=== PATIENT | female | born 1995 | race Hispanic/Latino ===

== ENCOUNTER 2020-03-21 21:20 | Day surgery (SDC) | payer OTHER ==
[2020-03-21 21:47] VITALS: BP 136/73; TEMP 98; BMI 36.6
[2020-03-21] MEDS ORDERED: hydrALAZINE 20 MG/ML VIAL SLOW IVP PRN (22:26)
--- NOTE | 2020-03-21 22:26 | PDOC.BPN ---
- Brief Progress Note Faculty note/H&P CC: spotting Patient of Dr Rey HPI: 24 yo at 34 weeks with spotting after recent sex yesterday. No VB, no LOF. No Clots.States failed 1 hr and needs 3 hr GTT. Review of Systems: negative for LOF, clots, CTX, good FM. No DIAZ, no visual changes. Failed 1 hr and g hr pending Allergies: none Surgical HX: neg Past medical: Negative Social: negative for ETIOH, smoking, drugs OB HX: HX with first delivery; this will be scheduled CS for that reason EXAM: 136/71 then 128/68 90 afebrile (98.0) NAD Thick vag dsch no active VB VX pending per Dr Thomas CX closed Labs: Cath UA VP3 Monitors: reactive nst with no CTX pattern Assessment and plan: 1. 34 weeks postcoital spotting 2. vag DSCG 3. Check VP3 and cath UA, 4. Reactive NST
--- NOTE | 2020-03-21 22:28 | PDOC.LDHP ---
Labor and Delivery H&P Chief complaint: other (Spotting at 34 weeks) HPI: See other H&P entry in progress note Allergies/Adverse Reactions: Allergies Allergy/AdvReac Type Severity Reaction Status Date / Time No Known Allergies Allergy Verified 03/21/20 21:39
[2020-03-21 22:54] LABS: Bacteria/HPF None Seen HPF (None Seen); Bilirubin Negative (Negative); Blood, Urine 1+ (Negative); Clarity Clear (Clear); Glucose, Urine (Dipstick) Normal (Negative); Ketone, Urine Negative (Negative); Leukocyte Negative Leu/uL (Negative); Nitrite Negative (Negative); Protein, Urine (Dipstick) Negative (Neg-Trace); RBC/HPF 21-50 HPF (0-3); Squamous Epithelial 0-3 HPF (0-3); Urobilinogen Normal mg/dL (Less than 2); WBC/HPF 0-3 HPF (0-3)
[2020-03-21 22:55] LABS: Urine Culture Reflex No No
--- NOTE | 2020-03-21 23:42 | PDOC.BPN ---
- Brief Progress Note Review of VP3 showed yeast. UA did not reveal evidence of infection. Will send home with rx for clotrimazole cream. F/u with Dr. Candido rodriguez. Radha ARORA PGY2 Discussed plan with Dr. Santacruz attending.
== END 2020-03-21 23:45 | disposition home or self-care (01) ==
LOC: L&D/OP 21:20
PROVIDERS: ATTEND Family Medicine
DX: O26.853 Spotting complicating pregnancy, third trimester (principal); O98.813 Other maternal infectious and parasitic diseases complicating pregnancy, third trimester; B37.3 Candidiasis of vulva and vagina; Z3A.34 34 weeks gestation of pregnancy
CPT/HCPCS: 51701; 81001; 87480; 87510; 87660; 99285

== ENCOUNTER 2020-04-21 10:27 | Inpatient (IN) | payer OTHER ==
[2020-04-21 11:20] VITALS: BMI 37.4
[2020-04-21] MEDS ORDERED: Butorphanol Tartrate 1 MG/ML VIAL SLOW IVP PRN (11:32)
[2020-04-21] MEDS ORDERED: Bicitra 30 ML UDCUP PO PRN (11:32)
[2020-04-21] MEDS ORDERED: Promethazine HCl 25 MG/ML VIAL IM PRN ×3 (11:32→20:24)
[2020-04-21] MEDS ORDERED: Famotidine/PF 20 mg/2ml Vial SLOW IVP PRN (11:32)
[2020-04-21] MEDS ORDERED: Ondansetron PF 4 MG/2 ML Vial IVP PRN ×3 (11:32→20:24)
[2020-04-21] MEDS ORDERED: hydrALAZINE 20 MG/ML VIAL SLOW IVP PRN (11:32)
[2020-04-21] MEDS ORDERED: Lactated Ringer's 1,000 ML IV SCH ×2 (11:45)
[2020-04-21 11:57] LABS: Mean Corpuscular HGB CONC 33.7 g/dL (32.0-36.0); Mean Corpuscular Hemoglobin 31.6 pg (27.0-31.0); Mean Corpuscular Volume 93.9 fL (78.0-98.0); Mean Platelet Volume 7.5 fL (7.4-10.4); Platelet Count 273 thou/uL (130-400); RBC Distribution Width 13.3 % (11.5-14.5); White Blood Cell (WBC) Count 9.1 thou/uL (4.8-10.8)
[2020-04-21] MEDS ORDERED: CEFAZOLIN 2 GM in Premix Bag 1 BAG IVPB SCH (12:00)
[2020-04-21] MEDS ORDERED: Azithromycin 500 MG in Sodium Chloride 0.9% 250 ML 250 ML IVPB SCH (12:15)
[2020-04-21 12:34] LABS: Hep B Surf Ag Non-Reactive S/CO (NonReactive)
[2020-04-21 12:35] LABS: Syphilis Antibody Nonreactive (Nonreactive); Syphilis Antibody Index 0.06 S/CO (<1.00 Non-Reactive)
[2020-04-21 15:52] LABS: SARS-CoV-2 MS2 Positive; SARS-CoV-2 N Gene Negative; SARS-CoV-2 S Gene Negative; SARS-CoV-2 by NAA Not Detected (NotDetected); SARS-CoV-2 orf1ab Negative
[2020-04-21] MEDS ORDERED: Morphine PF 10 MG/10 ML VIAL ONE (15:56)
[2020-04-21] MEDS ORDERED: Fentanyl 100 MCG/2 ML VIAL ONE (15:56)
[2020-04-21] MEDS ORDERED: Dexamethasone 4 mg/ml Vial ONE (15:57)
[2020-04-21] MEDS ORDERED: Oxytocin 10 UNITS/ML VIAL ONE (15:57)
[2020-04-21] MEDS ORDERED: Ondansetron PF 4 MG/2 ML Vial ONE (15:57)
[2020-04-21] MEDS ORDERED: Ketorolac Tromethamine 30 MG/ML VIAL ONE (15:57)
[2020-04-21] MEDS ORDERED: ePHEDrine 50 MG/ML VIAL ONE (15:57)
[2020-04-21] MEDS ORDERED: PHENYLEPHRINE-NS 100 MCG/ML 10 ML SYRINGE ONE (15:57)
[2020-04-21] MEDS ORDERED: Penicillin G Potassium 5 MILL.UNITS VIAL ONE (16:12)
[2020-04-21] MEDS ORDERED: Penicillin G Potassium 5 MILL.UNITS in Sodium Chloride 0.9% 100 ML IVPB SCH (16:15)
[2020-04-21] MEDS ORDERED: L&D-Morphine 4 MG/ML VIAL SLOW IVP PRN (16:55)
[2020-04-21] MEDS ORDERED: Promethazine HCl 25 MG SUPP PR PRN (16:55)
[2020-04-21] MEDS ORDERED: Ondansetron HCl/PF 4 MG/2 ML Vial IVP PRN (16:55)
[2020-04-21] MEDS ORDERED: HYDROmorphone 2 MG/ML VIAL SLOW IVP PRN (16:55)
[2020-04-21] MEDS ORDERED: diphenhydrAMINE 50 MG/ML VIAL IVP PRN (16:55)
[2020-04-21] MEDS ORDERED: Naloxone HCl 0.4 mg/ml Vial IVP PRN ×2 (16:55)
[2020-04-21] MEDS ORDERED: Naloxone HCl 0.4 mg/ml Vial IV PRN (16:55)
[2020-04-21] MEDS ORDERED: Ketorolac Tromethamine 30 MG/ML VIAL IVP PRN (16:55)
[2020-04-21] MEDS ORDERED: Meperidine HCl/PF 25 MG/ML VIAL SLOW IVP PRN (16:55)
[2020-04-21] MEDS ORDERED: Ketorolac Tromethamine 30 MG/ML VIAL IVP SCH (17:00)
[2020-04-21] MEDS ORDERED: Communication Order-Pharmacy FS SCH (17:00)
[2020-04-21] MEDS ORDERED: NS w/ Oxytocin 30 units 500 ML IV SCH (20:24)
[2020-04-21] MEDS ORDERED: Bisacodyl 10 MG SUPP PR PRN (20:24)
[2020-04-21] MEDS ORDERED: diphenhydrAMINE 25 MG CAP PO PRN (20:24)
[2020-04-21] MEDS ORDERED: Lanolin Ointment 7 GM TUBE TOP PRN (20:24)
[2020-04-21] MEDS ORDERED: HYDROcodone/Acetaminophen 5/325 mg Tablet PO PRN (20:24)
[2020-04-21] MEDS ORDERED: Ferrous Sulfate 325 MG TAB PO SCH (20:45)
[2020-04-22] MEDS: Docusate Calcium (SURFAK) 240 MG CAP PO SCH ×3 (00:50→19:51)
[2020-04-22] MEDS: Ketorolac Tromethamine 30 MG/ML VIAL IVP SCH ×3 (00:50→12:21)
[2020-04-22] MEDS ORDERED: Butorphanol Tartrate 1 MG/ML VIAL SLOW IVP PRN (05:00)
[2020-04-22] MEDS ORDERED: HYDROcodone/Acetaminophen 5/325 mg Tablet PO PRN (05:00)
--- NOTE | 2020-04-22 05:55 | PDOC.OPDEL ---
OB Operative/Delivery Note Delivery Dr/Surgeon: Candido Assist: Leora Pre-Delivery Diagnosis: other (History of 4th degree tear with previous vaginal delivery, SROM) Procedure/Post Delivery Dx: primary low transverse CS Weeks gestation: 38 (38.4) Anesthesia: spinal - Findings A Sex: male Weight: 6 lb 4.425 oz - 1 min: 8 - 5 min: 9 - Additional Findings/Plan Placenta delivered: spontaneous findings: low transverse hysterotomy without extension, normal uterus, normal tubes, normal ovaries Estimated blood loss: 410 Compilations/Other Findings: Date of Procedure: 04/21/20 Resident Surgeon: Leora Attending Surgeon: Candido Procedure: Primary low transverse caesarean section Preoperative Diagnosis: 1) SROM 2) History of 4th degree perineal tear with prior vaginal delivery 3) Term, SIUP Postoperative Diagnosis: 1) Term, SIUP, delivered 2) Same as above Anesthesia: spinal Indications: The patient is a 24 year old female at 38.4 weeks gestation who presented for pLTCS due to SROM in setting of planned pLTCS for her history of a 4th degree perineal laceration with her prior vaginal delivery. She declined a trial of labor early in the . Procedure in Detail: After risks, benefits, and alternatives were explained to the patient, she gave informed consent. Pre-operative antibiotics included Cefazolin 2 gram IV, Azithromycin 500mg. The patient was taken to the operating room and spinal anesthesia was initiated. She was placed in the supine position with a left tilt and prepped and draped in usual sterile fashion. A Pfannenstiel incision was made with a scalpel and carried down to the level of the fascia which was sharply nicked. Small areas of bleeding were controlled with bovie electrocautery. The fascial cut was extended bilaterally with Gale scissors. The inferior and superior edges of the cut fascial edges were elevated with Lindsay clamps and the underlying rectus muscles were sharply and bluntly dissected free. The recti were divided with blunt dissection and retracted manually. The peritoneum was entered bluntly and retracted manually. Lemuel-O was placed. A low transverse score was made with a new, clean scalpel and the uterus was entered in the midline bluntly. The hysterotomy was extended manually. The infant was noted to be vertex and was easily delivered by fundal pressure at 16:43. Mouth and nares were bulb suctioned. Cord clamped and cut and grossly normal male infant was handed to waiting nurse. Cord blood was obtained. Placenta was delivered spontaneously, found to be intact with 3 vessel cord and discarded. The uterus was externalized and the endometrium was curetted with a dry lap. The uterus was then noted to be firm. The uterus was closed with a running locking #1 Monocryl. The hysterotomy was still oozing and thus a second imbricating layer was placed using a running, non-locking #0 Vicryl suture. The left hysterotomy edge was still noted to be bleeding and thus 2 figure of eight sutures were placed using #0 Vicryl suture. Hemostasis was then achieved. The abdomen was irrigated with saline and suctioned free of clots. Seprafilm was placed over the anterior aspect of the uterus. The Lemuel-O was the removed. The uterus was internalized and the hysterotomy was again noted to be hemostatic. Peritoneum was reapproximated with a running, non-locking 3-0 Vicryl. The fascia was then closed with a running non-locking 1-PDS suture. The bovie electrocautery was used to achieve hemostasis of small areas of bleeding. The subcutaneous tissue was irrigated and there were no bleeders. The subcutaneous tissue was reapproximated with interrupted vertical mattress sutures using 3-0 Vicryl. The skin was approximated with magui and a wound vac was placed. All counts were correct. The patient tolerated the procedure well and was taken to the recovery room in stable condition. QBL: 410cc Complications: None Specimens: Cord blood sent to lab for blood type. Findings: Grossly normal male with Apgars of 8 and 9. Grossly normal placenta with 3 vessel cord. Drains: Perkins to gravity draining clear urine Post delivery plan: routine recovery
[2020-04-22 07:22] LABS: Hemoglobin 10.8 g/dL (12.0-16.0); Mean Corpuscular HGB CONC 34.7 g/dL (32.0-36.0); Mean Corpuscular Hemoglobin 32.4 pg (27.0-31.0); Mean Corpuscular Volume 93.4 fL (78.0-98.0); Mean Platelet Volume 7.4 fL (7.4-10.4); Platelet Count 228 thou/uL (130-400); RBC Distribution Width 13.1 % (11.5-14.5); Red Blood Cell (RBC) Count 3.33 mill/uL (4.20-5.40); White Blood Cell (WBC) Count 10.9 thou/uL (4.8-10.8)
[2020-04-22] MEDS ORDERED: Adacel (T-DAP) 0.5 ML SYRINGE IM ONE (09:00)
[2020-04-22] MEDS: Ferrous Sulfate 325 MG TAB PO SCH ×2 (09:19→18:53)
[2020-04-22] MEDS: Prenatal Vitamin 1 TAB PO SCH (09:19)
[2020-04-22] MEDS: HYDROcodone/Acetaminophen 5/325 mg Tablet PO PRN ×3 (09:20→19:52)
[2020-04-22] MEDS ORDERED: Sodium Chloride 0.9% 10 ML ONE (12:19)
[2020-04-22] MEDS: hydrALAZINE 20 MG/ML VIAL SLOW IVP SCH ×2 (19:36→19:37)
[2020-04-22] MEDS: Simethicone Chewable 80 MG TAB PO PRN (19:50)
[2020-04-22] MEDS: Ibuprofen 800 MG TAB PO SCH (19:51)
[2020-04-23] MEDS: HYDROcodone/Acetaminophen 5/325 mg Tablet PO PRN ×3 (00:05→09:18)
[2020-04-23] MEDS: Simethicone Chewable 80 MG TAB PO PRN ×3 (00:05→09:17)
[2020-04-23] MEDS: Ibuprofen 800 MG TAB PO SCH ×2 (05:08→14:17)
[2020-04-23] MEDS: Ferrous Sulfate 325 MG TAB PO SCH (07:51)
[2020-04-23] MEDS: Prenatal Vitamin 1 TAB PO SCH (09:17)
[2020-04-23] MEDS: Docusate Calcium (SURFAK) 240 MG CAP PO SCH (09:18)
[2020-04-23 12:29] VITALS: BP 108/56; TEMP 98.1
== END 2020-04-23 17:57 | disposition home or self-care (01) | DRG 787 ==
LOC: L&D 10:27 → 3SW 21:01
PROVIDERS: ADMIT Family Medicine; ATTEND Family Medicine
PROC: 10D00Z1 Extraction of Products of Conception, Low, Open Approach (ICD-10-PCS; principal; 2020-04-21)
DX: O75.82 Onset (spontaneous) of labor after 37 completed weeks of gestation but before 39 completed weeks gestation, with delivery by (planned) cesarean section (principal); O98.82 Other maternal infectious and parasitic diseases complicating childbirth; Z20.828 Contact with and (suspected) exposure to other viral communicable diseases; B95.1 Streptococcus, group B, as the cause of diseases classified elsewhere; Z87.59 Personal history of other complications of pregnancy, childbirth and the puerperium; Z3A.38 38 weeks gestation of pregnancy; Z37.0 Single live birth
CPT/HCPCS: 36415; 51702; 85027; 86780; 86850; 86900; 86901; 87340; 87635; J1100; J1885; J2270; J2405; J2540; J3010; J3490; U0003